=== PATIENT | female | born 1995 | race African-American/Black ===

== ENCOUNTER 2023-11-22 20:12 | Emergency (ER) | payer MEDICAID ==
[~2023-11-22] VITALS: Ht 177.8 cm; Wt 59.0 kg
[2023-11-22 20:22] VITALS: TEMP 98.6; O2SAT 100
[2023-11-22] MEDS: DIAZEPAM 5 MG/ML 2ML SYR IM ONE (22:59)
[2023-11-22] MEDS ORDERED: DIPHENHYDRAMINE 50MG/ML VIAL IV ONE (23:45)
[2023-11-22] MEDS ORDERED: LORAZEPAM 2MG/ML INJ IV ONE (23:45)
[2023-11-23] MEDS ORDERED: CYCL10TA21 MT (01:13)
[2023-11-23] MEDS: DIPHENHYDRAMINE 50MG/ML VIAL IV NR (01:49)
[2023-11-23] MEDS: LORAZEPAM 2MG/ML INJ IV NR (01:51)
[2023-11-23 03:12] VITALS: BP 115/74; PULSE 85; RESP 14
== END 2023-11-23 03:15 | disposition home or self-care (01) ==
LOC: ER 20:12
DX: M62.838 Other muscle spasm (principal); J45.909 Unspecified asthma, uncomplicated
CPT/HCPCS: 99284; 96372; 96374; 96375; J3360; J1200; J2060